=== PATIENT | female | born 1995 | race Caucasian/White ===

== ENCOUNTER 2017-03-10 15:37 | Emergency (ER) | payer MEDICAID, OTHER ==
[~2017-03-10] VITALS: Ht 152.4 cm; Wt 53.6 kg
[2017-03-10] MEDS ORDERED: PERTUSS(ACELL),DIPH,TET VAC/PF 0.5 ML VIAL IM ONE (16:15)
[2017-03-10] MEDS ORDERED: LIDOCAINE HCL 1% 10 ML VIAL INJ ONE (16:15)
[2017-03-10 17:01] VITALS: BP 124/88
== END 2017-03-10 17:06 | disposition home or self-care (01) ==
LOC: EMS 15:43
DX: S01.511A Laceration without foreign body of lip, initial encounter (principal); X58.XXXA Exposure to other specified factors, initial encounter; Y93.89 Activity, other specified; Y92.830 Public park as the place of occurrence of the external cause; Y99.8 Other external cause status
CPT/HCPCS: 12011; 90471; 90715; 99283; J3490